=== PATIENT | female | born 1970 | race Caucasian/White ===

== ENCOUNTER 2019-03-01 10:41 | Emergency (ER) | payer SELFPAY ==
[~2019-03-01] VITALS: Ht 154.9 cm; Wt 66.0 kg
[2019-03-01] MEDS ORDERED: IBUPROFEN 800 MG TABLET PO ONE (12:15)
[2019-03-01 13:53] VITALS: BP 139/81
== END 2019-03-01 15:10 | disposition home or self-care (01) ==
LOC: EMS 10:43
DX: S83.91XA Sprain of unspecified site of right knee, initial encounter (principal); S83.92XA Sprain of unspecified site of left knee, initial encounter; S00.93XA Contusion of unspecified part of head, initial encounter; Z88.0 Allergy status to penicillin; V49.9XXA Car occupant (driver) (passenger) injured in unspecified traffic accident, initial encounter; Y93.89 Activity, other specified; Y92.89 Other specified places as the place of occurrence of the external cause; Y99.8 Other external cause status
CPT/HCPCS: 70450